=== PATIENT | female | born 1970 | race Two or more races ===

== ENCOUNTER 2019-04-14 05:44 | Day surgery (SDC) | payer OTHER ==
[~2019-04-14 05:44] MED LIST: CIPRO500 MG
== END 2019-04-14 09:40 | disposition home or self-care (01) ==
LOC: AMB-ENDOS 05:44 → ADM 09:15 → AMB-ENDOS 09:15
DX: K29.50 Unspecified chronic gastritis without bleeding (principal); K44.9 Diaphragmatic hernia without obstruction or gangrene

== ENCOUNTER 2021-06-09 14:50 | Emergency (ER) | payer OTHER ==
[~2021-06-09] VITALS: Ht 152.4 cm; Wt 59.0 kg
== END 2021-06-09 18:21 | disposition home or self-care (01) ==
LOC: ER 14:50
DX: S01.82XA Laceration with foreign body of other part of head, initial encounter (principal); W18.30XA Fall on same level, unspecified, initial encounter; Y93.01 Activity, walking, marching and hiking; Y92.019 Unspecified place in single-family (private) house as the place of occurrence of the external cause

== ENCOUNTER 2024-12-21 08:00 | Day surgery (SDC) | payer OTHER ==
[2024-12-14 08:36] VITALS: BP 120/70
[2024-12-14 13:17] LABS: INR 0.98
[~2024-12-21] VITALS: Ht 152.4 cm; Wt 123.8 kg
[2024-12-21] MEDS ORDERED: CEFAZOLIN SODIUM 1,000 MG VIAL ONE (09:05)
[2024-12-21] MEDS ORDERED: BUPIVACAINE HCL 30 ML VIAL IJ ONE (09:30)
[2024-12-21] MEDS ORDERED: CITRIC ACID/SODIUM CITRATE 15 ML BLIST.PACK PO ONE (09:30)
[2024-12-21] MEDS ORDERED: LIDOCAINE HCL 1% 20 ML VIAL IJ ONE (09:45)
[2024-12-21] MEDS ORDERED: ISOPROPYL ALCOHOL 30 ML OUNCE TOP ONE (09:45)
== END 2024-12-21 11:45 | disposition home or self-care (01) ==
LOC: CIR.AMB 08:00
PROVIDERS: ATTEND Surgery Surgery of the Hand
DX: M67.843 Other specified disorders of tendon, right hand (principal)